=== PATIENT | male | born 1970 | race Caucasian/White ===

== ENCOUNTER 2024-08-04 08:24 | Outpatient (AMB) | payer OTHER, SELFPAY ==
--- NOTE | 2024-08-04 08:38 | HO.NEPHOV_ITS ---
Vital Signs 08/04/24 08:39 Height 6 ft 1 in Weight 333 lb BMI 43.9 BP 122/92 H Blood Pressure Location Rt brachial Position Sitting Pulse 94 Pulse Source Pulse Oximeter Pulse Oximetry (%) 97 Oxygen Delivery Method Room Air Intake Visit Reasons: ENP-W/C Post Concussion Vice President Payment Required: No Accompanied by: Self / Same As Patient Allergies No Known Allergies Allergy (Verified 08/04/24 08:42) Coding
[2024-08-04 08:39] VITALS: BP 122/92; PULSE 94; O2SAT 97; BMI 43.9
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
== END 2024-08-04 10:09 | disposition home or self-care (01) ==
LOC: HO.HSMS 08:30
PROVIDERS: PCP Physician Assistant Medical; Visit Provider Nurse Practitioner Family
DX: F07.81 Postconcussional syndrome (principal); G44.309 Post-traumatic headache, unspecified, not intractable; M54.2 Cervicalgia; R06.83 Snoring; G47.9 Sleep disorder, unspecified; M25.561 Pain in right knee; G89.29 Other chronic pain; Z68.41 Body mass index [BMI] 40.0-44.9, adult; M54.9 Dorsalgia, unspecified
CPT/HCPCS: 99204

== ENCOUNTER → 2024-08-04 08:24 | Outpatient (BNVA) | payer OTHER, SELFPAY | PROVIDERS: PCP Physician Assistant Medical; Visit Provider Nurse Practitioner Family | DX: G43.009 Migraine without aura, not intractable, without status migrainosus (principal); M54.2 Cervicalgia; F07.81 Postconcussional syndrome; R06.83 Snoring; G47.9 Sleep disorder, unspecified; Z68.41 Body mass index [BMI] 40.0-44.9, adult; M25.561 Pain in right knee; G89.29 Other chronic pain; M54.9 Dorsalgia, unspecified | CPT/HCPCS: 99202 ==

== ENCOUNTER 2024-11-09 07:27 | Outpatient (AMB) | payer OTHER, SELFPAY ==
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
[2024-11-09 07:32] VITALS: BP 122/78; PULSE 80; O2SAT 97; BMI 43.0
== END 2024-11-09 08:27 | disposition home or self-care (01) ==
LOC: HO.HSMS 07:28
PROVIDERS: PCP Physician Assistant Medical; Visit Provider Nurse Practitioner Family
DX: F07.81 Postconcussional syndrome (principal); G44.309 Post-traumatic headache, unspecified, not intractable; M54.2 Cervicalgia; R06.83 Snoring; G47.9 Sleep disorder, unspecified; Z68.41 Body mass index [BMI] 40.0-44.9, adult; M25.561 Pain in right knee; G89.29 Other chronic pain; M54.9 Dorsalgia, unspecified
CPT/HCPCS: 99214

== ENCOUNTER → 2024-11-09 07:27 | Outpatient (BNVA) | payer OTHER, SELFPAY | PROVIDERS: PCP Physician Assistant Medical; Visit Provider Nurse Practitioner Family | DX: G43.009 Migraine without aura, not intractable, without status migrainosus (principal); F07.81 Postconcussional syndrome; M54.2 Cervicalgia; R06.83 Snoring; G47.9 Sleep disorder, unspecified; M25.561 Pain in right knee; M25.562 Pain in left knee; M54.9 Dorsalgia, unspecified; G89.29 Other chronic pain; E66.9 Obesity, unspecified; Z68.41 Body mass index [BMI] 40.0-44.9, adult | CPT/HCPCS: 99212 ==

== ENCOUNTER → 2025-01-25 12:38 | Outpatient (REF) | payer OTHER, SELFPAY | LOC: HO.SL 12:38 | PROVIDERS: PCP Physician Assistant Medical; Visit Provider Nurse Practitioner Family | DX: R06.83 Snoring (principal); G47.9 Sleep disorder, unspecified; Z68.41 Body mass index [BMI] 40.0-44.9, adult | CPT/HCPCS: 95806 ==

== ENCOUNTER → 2025-01-25 12:50 | Outpatient (BNV) | payer OTHER, SELFPAY | PROVIDERS: PCP Physician Assistant Medical; Visit Provider Psychiatry & Neurology Neurology | DX: G47.33 Obstructive sleep apnea (adult) (pediatric) (principal) | CPT/HCPCS: 95806 ==

== ENCOUNTER 2025-02-06 09:49 | Outpatient (AMB) | payer OTHER, SELFPAY ==
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
[2025-02-06 10:03] VITALS: BP 122/84; PULSE 88; O2SAT 97; BMI 40.2
== END 2025-02-06 11:12 | disposition home or self-care (01) ==
LOC: HO.HSMS 09:50
PROVIDERS: PCP Physician Assistant Medical; Visit Provider Nurse Practitioner Family
DX: F07.81 Postconcussional syndrome (principal); G43.009 Migraine without aura, not intractable, without status migrainosus; M54.2 Cervicalgia; R06.83 Snoring; G47.9 Sleep disorder, unspecified; Z68.41 Body mass index [BMI] 40.0-44.9, adult; M25.561 Pain in right knee; G89.29 Other chronic pain; M54.9 Dorsalgia, unspecified
CPT/HCPCS: 99214

== ENCOUNTER → 2025-02-06 09:49 | Outpatient (BNVA) | payer OTHER, SELFPAY | PROVIDERS: PCP Physician Assistant Medical; Visit Provider Nurse Practitioner Family | DX: G43.009 Migraine without aura, not intractable, without status migrainosus (principal); F07.81 Postconcussional syndrome; M54.2 Cervicalgia; R06.83 Snoring; G47.9 Sleep disorder, unspecified; Z68.41 Body mass index [BMI] 40.0-44.9, adult; G89.29 Other chronic pain; M25.561 Pain in right knee; M54.9 Dorsalgia, unspecified; Z79.899 Other long term (current) drug therapy | CPT/HCPCS: 99212 ==